=== PATIENT | female | born 1985 | race Caucasian/White ===

== ENCOUNTER 2017-12-29 13:47 | Emergency (ER) | payer OTHER ==
[~2017-12-29] VITALS: Ht 180.3 cm; Wt 96.0 kg
[~2017-12-29 13:47] MED LIST: ACET325T14 PO; CALC300T5 PO; HYDR-3240 PO; IBUP-1222 PO; PREN1TAB60 PO
[2017-12-29 13:50] VITALS: BP 113/79
[2017-12-29] MEDS ORDERED: KETOROLAC 30 MG/1 ML IM ONE (14:30)
[2017-12-29] MEDS ORDERED: KETOROLAC 30 MG/1 ML ONE (14:31)
== END 2017-12-29 16:28 | disposition home or self-care (01) ==
LOC: ED 14:22
DX: S16.1XXA Strain of muscle, fascia and tendon at neck level, initial encounter (principal); M25.561 Pain in right knee; M25.512 Pain in left shoulder; M25.522 Pain in left elbow; G89.11 Acute pain due to trauma; W01.0XXA Fall on same level from slipping, tripping and stumbling without subsequent striking against object, initial encounter; Y93.89 Activity, other specified; Y92.488 Other paved roadways as the place of occurrence of the external cause; Y99.8 Other external cause status
CPT/HCPCS: 72125; 73030; 73080; 73564; 93005; 96372; 99284; J1885